=== PATIENT | male | born 1950 | race Caucasian/White ===

== ENCOUNTER → 2017-12-19 09:00 | Outpatient (CLI) | payer OTHER, MEDICARE, SELFPAY | PROVIDERS: PCP Family Medicine; Visit Provider Family Medicine | DX: E04.9 Nontoxic goiter, unspecified (principal); E04.1 Nontoxic single thyroid nodule; Z53.8 Procedure and treatment not carried out for other reasons ==

== ENCOUNTER → 2019-07-23 14:58 | Outpatient (CLI) | payer OTHER, SELFPAY ==
--- NOTE | 2019-07-23 15:06 | DI.RAD.S_ITS ---
PROCEDURE: XR HAND RT MIN 3V INDICATIONS: Osteoarthritis TECHNIQUE: 3 views of the hand(s) acquired. COMPARISON: None. FINDINGS: Bones: Osteophytic changes are noted along radial aspect of right hand and wrist as well as in the first interphalangeal joint, second through fifth DIP joints with features suggestive of erosive osteoarthritis in second and third DIP joints. No fractures or dislocations. Carpal bones are normally aligned. No suspicious bony lesions. Soft tissues: No suspicious soft tissue calcifications. 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 Dictated by: Cali Robles M.D. on 07/23/2019 at 16:07 Approved by: Cali Robles M.D. on 07/23/2019 at 16:08
--- NOTE | 2019-07-23 15:06 | DI.RAD.S_ITS ---
PROCEDURE: XR HAND LT MIN 3V INDICATIONS: Osteoarthritis TECHNIQUE: Pre-views of the hand(s) acquired. COMPARISON: None. FINDINGS: Bones: No fractures or dislocations. Osteophytic changes involving second and third DIP joints are seen with features as discussed above erosive osteoarthritis. Moderate first MCP joint and first interphalangeal joint osteoarthritic changes also seen. Carpal bones are normally aligned. No suspicious bony lesions. Soft tissues: No suspicious soft tissue calcifications. IMPRESSION: Finding is suggestive of erosive osteoarthritis involving second and third DIP joints. Mild to moderate osteoarthritis in the first interphalangeal joint and first MCP joint. Dictated by: Cali Robles M.D. on 07/23/2019 at 16:00 Approved by: Cali Robles M.D. on 07/23/2019 at 16:07
[2019-07-23 16:36] LABS: Hemoglobin A1C% w Est Avg Glu 5.6 % (4.0-6.0)
[2019-07-23 16:38] LABS: Add Manual Diff / Slide Review NO; Basophils Absolute Auto 0 /uL (0-100); Basophils Percent Auto 0.5 % (0-2); Eosinophils Absolute Auto 400 /uL (0-450); Eosinophils Percent Auto 4.8 % (2-4); Hematocrit 48.9 % (41-53); Hemoglobin 16.8 g/dL (13.5-17.5); Lymphocytes Absolute Auto 1600 /uL (1100-4500); Lymphocytes Percent Auto 21.3 % (25-40); Mean Corpuscular HGB Conc 34.4 % (30-36); Mean Corpuscular Hemoglobin 31.3 PG (26-34); Mean Corpuscular Volume 90.8 fL (80-100); Monocytes Absolute Auto 800 /uL (0-900); Monocytes Percent Auto 10.4 % (3-14); Neutrophils Absolute Auto 4600 /uL (1500-7000); Platelet Count 348 X10^3/uL (150-400); Red Blood Cell Count 5.38 X10^6/uL (4.5-5.9); Red Cell Distribution Width 14.2 % (11.6-14.8); White Blood Cell Count 7.3 X10^3/uL (4.5-11.0)
[2019-07-23 16:41] LABS: Alanine Aminotransferase 18 IU/L (<50); Albumin 4.8 g/dL (3.5-5.0); Albumin Globulin Ratio 1.4 (1.0-2.8); Alkaline Phosphatase 76 U/L (38-126); Aspartate Aminotransferase 30 IU/L (17-59); Bilirubin Total 0.5 mg/dL (0.2-1.3); Blood Urea Nitrogen 20 mg/dL (9-20); Calcium 9.8 mg/dL (8.4-10.2); Carbon Dioxide 31 mmol/L (22-32); Chloride 101 mmol/L (98-107); Cholesterol 299 mg/dL (140-199); Estimated Glomerular Filt Rate > 60.0 mL/min (>60); Globulin 3.4 g/dL (1.7-4.1); Glucose 101 mg/dL (80-110); HDL Cholesterol 42 mg/dL (40-60); HEMOLYSIS < 15 (0-50); LDL Cholesterol Calculated 187 mg/dL (<100); Potassium 3.9 mmol/L (3.4-5.1); Sodium 140 mmol/L (137-145); Total Protein 8.2 g/dL (6.3-8.2); Triglycerides 350 mg/dL (35-150)
[2019-07-23 17:10] LABS: Prostate Specific Antigen Scrn 1.21 ng/mL (0.1-4.0)
[2019-07-23 17:28] LABS: Vitamin B12 729 pg/mL (239-931)
[2019-07-23 18:46] LABS: Free T4, Direct Thyroxine 0.48 ng/dL (0.78-2.19)
== END ==
PROVIDERS: PCP Family Medicine; Visit Provider Family Medicine
DX: M19.042 Primary osteoarthritis, left hand (principal); M19.041 Primary osteoarthritis, right hand; E03.9 Hypothyroidism, unspecified; E53.8 Deficiency of other specified B group vitamins; Z76.89 Persons encountering health services in other specified circumstances
CPT/HCPCS: 36415; 73130; 80053; 80061; 82607; 83036; 84439; 84443; 85025; G0103

== ENCOUNTER → 2019-09-22 10:09 | Outpatient (CLI) | payer OTHER, SELFPAY ==
[2019-09-22 11:51] LABS: Erythrocyte Sedimentation Rate 3 MM/HR (0-15)
[2019-09-22 11:57] LABS: Rheumatoid Factor < 8.6 IU/mL (<12.0)
[2019-09-22 12:07] LABS: Free T4, Direct Thyroxine 1.33 ng/dL (0.78-2.19)
[2019-09-22 12:21] LABS: Thyroid Stimulating Hormone 4.23 uIU/mL (0.47-4.68)
[2019-09-25 13:30] LABS: ANA Screen, IFA Negative (.)
== END ==
PROVIDERS: PCP Family Medicine; Referring Provider Family Medicine; Visit Provider Family Medicine
DX: E03.9 Hypothyroidism, unspecified (principal); M25.50 Pain in unspecified joint; M79.673 Pain in unspecified foot
CPT/HCPCS: 36415; 84439; 84443; 85651; 86038; 86430

== ENCOUNTER → 2021-03-13 08:25 | Outpatient (CLI) | payer MEDICARE, OTHER, SELFPAY ==
[2021-03-13 09:46] LABS: Add Manual Diff / Slide Review NO; Basophils Absolute Auto 0 /uL (0-100); Basophils Percent Auto 0.6 % (0-2); Eosinophils Absolute Auto 200 /uL (0-450); Eosinophils Percent Auto 2.6 % (2-4); Hematocrit 49.2 % (41-53); Hemoglobin 16.8 g/dL (13.5-17.5); Lymphocytes Absolute Auto 1900 /uL (1100-4500); Lymphocytes Percent Auto 27.7 % (25-40); Mean Corpuscular HGB Conc 34.1 % (30-36); Monocytes Absolute Auto 600 /uL (0-900); Monocytes Percent Auto 8.8 % (3-14); Neutrophils Absolute Auto 4200 /uL (1500-7000); Neutrophils Percent Auto 60.3 % (50-75); Platelet Count 294 X10^3/uL (150-400); Red Blood Cell Count 5.41 X10^6/uL (4.5-5.9); Red Cell Distribution Width 13.6 % (11.6-14.8)
[2021-03-13 10:06] LABS: Erythrocyte Sedimentation Rate 2 MM/HR (0-15)
[2021-03-13 10:09] LABS: Alanine Aminotransferase 19 IU/L (<50); Albumin 4.4 g/dL (3.5-5.0); Albumin Globulin Ratio 1.4 (1.0-2.8); Alkaline Phosphatase 73 U/L (38-126); Aspartate Aminotransferase 35 IU/L (17-59); BUN Creatinine Ratio 23.9 (6-22); Bilirubin Total 0.7 mg/dL (0.2-1.3); Blood Urea Nitrogen 16 mg/dL (9-20); C-Reactive Protein Quant < 0.5 mg/dL (<1.0); Calcium 8.9 mg/dL (8.4-10.2); Carbon Dioxide 28 mmol/L (22-32); Chloride 106 mmol/L (98-107); Cholesterol 289 mg/dL (140-199); Estimated Glomerular Filt Rate > 60.0 mL/min (>60); Globulin 3.2 g/dL (1.7-4.1); Glucose 103 mg/dL (80-110); HDL Cholesterol 50 mg/dL (40-60); HEMOLYSIS 39 (0-50); LDL Cholesterol Calculated 182 mg/dL (<100); Potassium 4.5 mmol/L (3.4-5.1); Sodium 140 mmol/L (137-145); Total Protein 7.6 g/dL (6.3-8.2); Triglycerides 283 mg/dL (35-150)
[2021-03-13 10:20] LABS: Free T4, Direct Thyroxine 0.87 ng/dL (0.78-2.19)
[2021-03-13 10:28] LABS: Prostate Specific Antigen Scrn 0.987 ng/mL (0.1-4.0)
== END ==
PROVIDERS: PCP Family Medicine; Referring Provider Internal Medicine; Visit Provider Internal Medicine
DX: I10 Essential (primary) hypertension (principal); E03.9 Hypothyroidism, unspecified; Z12.5 Encounter for screening for malignant neoplasm of prostate; E78.5 Hyperlipidemia, unspecified
CPT/HCPCS: 36415; 80053; 80061; 84439; 84443; 85025; 85651; 86140; G0103

== ENCOUNTER → 2021-03-23 11:26 | Outpatient (CLI) | payer MEDICARE, OTHER, SELFPAY ==
--- NOTE | 2021-03-23 | DI.CT.S_ITS ---
PROCEDURE: CT ABDOMEN PELVIS W CON INDICATIONS: Other intra-abdominal and pelvic swelling TECHNIQUE: After the administration of intravenous contrast, axial sections acquired from the lung bases to the pubic symphysis. Coronal and sagittal reformats were performed. For radiation dose reduction, the following was used: automated exposure control, adjustment of mA and/or kV according to patient size. COMPARISON: None. FINDINGS: Image quality: Excellent. Lung bases: Unremarkable. Heart: No significant findings. ABDOMEN: Liver: Hepatic steatosis is seen, no discrete hepatic lesion. Liver is normal in size. Gallbladder: Within normal limits. Biliary ducts: Unremarkable. Pancreas: Unremarkable. Spleen: Unremarkable. Adrenal Glands: Unremarkable. Kidneys and Ureters: No stones or hydronephrosis. No hydroureter. Small left renal cortical cyst measures 5 mm in size is noted in midpole of left kidney. Stomach and Bowel: There is a small to moderate-sized hiatal hernia. No gross gastric wall or small bowel wall thickening. No colonic wall thickening. No mesenteric fat stranding. Extensive descending colon and sigmoid colon diverticulosis is seen, no CT evidence of acute diverticulitis. No abscess collection. Appendix is visualized and is within normal limits. Peritoneum: No abnormal intraperitoneal fluid. No free air. Ventral Wall: No hernias. Abdominal Nodes: No retroperitoneal or mesenteric adenopathy by size criteria. Vessels: Aorta and inferior vena cava are normal in size. PELVIS: Pelvic Organs: Unremarkable. Bladder: Unremarkable. Pelvic Nodes: No enlarged lymph nodes. Miscellaneous: Bilateral inguinal hernia are seen containing fat only. Bones: No suspicious bony lesion. No acute vertebral body compression fracture. IMPRESSION: 1. Small to moderate-sized hiatal hernia. No bowel obstruction or abnormal bowel wall thickening. No free fluid or free air. Normal appendix. Colonic diverticulosis without CT evidence of acute diverticulitis. 2. Hepatic steatosis, no discrete hepatic lesion. 3. No renal stone or hydronephrosis. 4. Small bilateral inguinal hernia containing fat only. Dictated by: Cali Robles M.D. on 03/23/2021 at 13:14 Approved by: Cali Robles M.D. on 03/23/2021 at 13:36
== END ==
PROVIDERS: PCP Family Medicine; Referring Provider Specialist; Visit Provider Specialist
DX: R19.09 Other intra-abdominal and pelvic swelling, mass and lump (principal); K44.9 Diaphragmatic hernia without obstruction or gangrene; K57.30 Diverticulosis of large intestine without perforation or abscess without bleeding; K76.0 Fatty (change of) liver, not elsewhere classified; K40.20 Bilateral inguinal hernia, without obstruction or gangrene, not specified as recurrent
CPT/HCPCS: 74177; 99213

== ENCOUNTER → 2021-04-18 10:01 | Outpatient (CLI) | payer MEDICARE, OTHER, SELFPAY ==
[2021-04-18 11:41] LABS: COVID19 -Nasal RAPID Negative (Negative)
== END ==
PROVIDERS: PCP Family Medicine; Visit Provider Specialist
DX: Z20.822 Contact with and (suspected) exposure to COVID-19 (principal); Z01.812 Encounter for preprocedural laboratory examination
CPT/HCPCS: 87635; C9803

== ENCOUNTER 2021-04-19 11:39 | Day surgery (SDC) | payer MEDICARE, OTHER, SELFPAY ==
[2021-04-16 15:24] VITALS: BMI 30.9
[2021-04-19] VITALS (7 sets, daily range): BP systolic 119–132; BP diastolic 72–87; PULSE 74–101; RESP 13–18; TEMP 36.2–37.1; O2SAT 94–97; BMI 30.9
[2021-04-19] MEDS: GABAPENTIN 300 MG CAPSULE PO (12:02)
[2021-04-19] MEDS: ACETAMINOPHEN 325 MG TABLET 975 MG PO (12:02)
[2021-04-19] MEDS: LACTATED RINGERS 1,000 ML 42 ML IV ×2 (12:03→14:37)
--- NOTE | 2021-04-19 13:06 | PM.PREOP ---
Pre-operative Note COVID-19 COVID-19 status: Negative Result date/Date tested (Pos, Neg/Pending): 04/18/21 Interval Note History & Physical reviewed/Exam performed by Physician: Yes Changes to H&P: No
--- NOTE | 2021-04-19 13:26 | SUR.OPER ---
Supine on padded OR bed, head on pillow, arms secured on padded arm boards at <90 degrees abduction, legs uncrossed, safety belt at thigh, tape over blanket over lower legs.
[2021-04-19] MEDS: BUPIVACAINE 0.5% (PF) VIAL 30 ML INJ (13:33)
[2021-04-19] MEDS: CEFAZOLIN 1 GM VIAL 2 GM IV (13:33)
--- NOTE | 2021-04-19 15:10 | PM.OP.1 ---
Operative Date/Time/Diagnoses Date of procedure: 04/19/21 Time of procedure: 15:10 Pre-op diagnosis: Bilateral reducible inguinal hernias Post-op diagnosis: same (Both sides with direct hernias.) Procedure & Clinicians Procedure: Bilateral repair of hernias. Left side repaired in Zenobia fashion the right side was repaired with a plug and patch technique Same procedure as scheduled: Yes Indications: Symptomatic hernias Surgeon: Lit Boogie Click Yes if Unassisted: Yes Anesthesia Type: General Operative Notes Findings: As above Closure Type: primary Specimen(s): none sent Prosthetic devices, grafts, tissues, transplants, or devices: 2 x 4 in Marlex mesh on the left. Large plug and patch on the right. Estimated Blood Loss (mL): 10 Blood products transfused: none Procedure in detail: The patient was placed supine on the operating room table and underwent general LMA anesthesia. He was prepped and draped in the usual fashion. A transverse incision was made overlying the left internal ring and carried down to the level of the external oblique. The external oblique was opened parallel with its fibers through the external ring. The cord structures were elevated. The cord was quite diminutive in size. The cremaster was opened proximally and search made for an indirect sac. None was found. The floor was examined and was found to be weekend with bulging in the mid section. A 2 by 4 inch piece of Marlex mesh placed across the floor and tacked at the pubic tubercle, the posterior lamella of the anterior rectus sheath, the ilioinguinal ligament, and superior lateral to the cord. Anopening was made to allow the cord structures to egress through the mesh. It was made as necessary to prevent tight constriction of the cord. Sutures of 0 Ethibond were used to secure the mesh. The external oblique was closed with a running 3 0 Vicryl. The subcu was closed with interrupted 3 0 Vicryl. The skin was closed with a running 4 0 Vicryl subcuticular stitch . Attention was turned to the right side. A transverse mirror incision was made overlying the right internal ring and carried down to the level of the external oblique. The external oblique was opened parallel with its fibers through the external ring. The cord structures were elevated. The cord on this side was also small but there was a small lipoma of the cord. I opened the cremaster and dissected this fat from the surrounding structures ligated it and removed it. I made a search made for an indirect sac But none was found. The floor was examined and was found to be markedly attenuated. The floor was opened and the preperitoneal fat protruding up was dissected off the overlying tissues and reduced. A large plug was placed in the preperitoneal space and tacked into place with interrupted Ethibond suture. The floor was closed over this with interrupted Ethibond sutures suturing from the edge of the inguinal ligament in the ileopubic tract to the transversus medially. A patch was placed across the floor and tacked at the pubic tubercle, the posterior lamella of the anterior rectus sheath, the ilioinguinal ligament, and superior lateral to the cord. The opening was modified as necessary to prevent tight constriction of the cord. Sutures of 0 Ethibond were used to secure the mesh. The external oblique was closed with a running 3 0 Vicryl. The subcu was closed with interrupted 4-0 Vicryl. The skin was closed with a running 4 0 Vicryl subcuticular stitch. Local anesthetic was infiltrated on both wounds. Mastisol and Steri-Strips Dressing was applied, the patient was awakened, and the patient was taken to the recovery area in good condition. Complications: none Post-operative Condition: stable Disposition: PACU
--- NOTE | 2021-04-19 15:21 | SUR.PHASEI ---
Pt A&O, denies pain or nausea, sitting up now and drinking gingerale without problems. VSS
[2021-04-19] MEDS: OXYCODONE IR 5 MG TABLET PO (15:32)
--- NOTE | 2021-04-19 15:47 | SUR.PHASEII ---
Pt resting comfortably with no complaints wanting pain med oxycodone given po at 1530 to take effect before trying to get up and get dressed. Pt states he can feel the incisions now but pain at 3/10.
== END 2021-04-19 16:20 | disposition home or self-care (01) ==
PROVIDERS: PCP Family Medicine; Referring Provider Specialist; Visit Provider Specialist
PROC: (CPT 49505; principal; 2021-04-19 12:45)
DX: K40.20 Bilateral inguinal hernia, without obstruction or gangrene, not specified as recurrent (principal); I10 Essential (primary) hypertension; E78.5 Hyperlipidemia, unspecified; E03.9 Hypothyroidism, unspecified; K21.9 Gastro-esophageal reflux disease without esophagitis; E66.9 Obesity, unspecified; Z68.30 Body mass index [BMI] 30.0-30.9, adult; Z87.891 Personal history of nicotine dependence
CPT/HCPCS: 49505; 82962; C1781; J0690; J1100; J1885; J2405; J2704; J3010

== ENCOUNTER → 2021-07-16 08:46 | Outpatient (CLI) | payer MEDICARE, OTHER, SELFPAY ==
[2021-07-16 10:29] LABS: Alanine Aminotransferase 24 IU/L (<50); Albumin 4.3 g/dL (3.5-5.0); Albumin Globulin Ratio 1.3 (1.0-2.8); Alkaline Phosphatase 85 U/L (38-126); Aspartate Aminotransferase 34 IU/L (17-59); BUN Creatinine Ratio 23.7 (6-22); Bilirubin Total 0.4 mg/dL (0.2-1.3); Blood Urea Nitrogen 18 mg/dL (9-20); Carbon Dioxide 26 mmol/L (22-32); Chloride 108 mmol/L (98-107); Cholesterol 202 mg/dL (140-199); Estimated Glomerular Filt Rate > 60.0 mL/min (>60); Globulin 3.4 g/dL (1.7-4.1); Glucose 102 mg/dL (80-110); HDL Cholesterol 45 mg/dL (40-60); HEMOLYSIS < 15 (0-50); LDL Cholesterol Calculated 125 mg/dL (<100); Potassium 3.8 mmol/L (3.4-5.1); Sodium 140 mmol/L (137-145); Total Protein 7.7 g/dL (6.3-8.2); Triglycerides 162 mg/dL (35-150)
[2021-07-16 10:45] LABS: Free T4, Direct Thyroxine 0.89 ng/dL (0.78-2.19)
[2021-07-16 10:56] LABS: Prostate Specific Antigen Scrn 0.922 ng/mL (0.1-4.0)
[2021-07-16 10:58] LABS: Thyroid Stimulating Hormone 3.72 uIU/mL (0.47-4.68)
== END ==
PROVIDERS: PCP Family Medicine; Referring Provider Family Medicine; Visit Provider Family Medicine
DX: E03.9 Hypothyroidism, unspecified (principal); Z12.5 Encounter for screening for malignant neoplasm of prostate; E78.5 Hyperlipidemia, unspecified; N40.0 Benign prostatic hyperplasia without lower urinary tract symptoms
CPT/HCPCS: 36415; 80053; 80061; 84439; 84443; G0103

== ENCOUNTER → 2022-10-21 07:58 | Outpatient (CLI) | payer MEDICARE, OTHER, SELFPAY ==
[2022-10-21 09:28] LABS: Alanine Aminotransferase 32 IU/L (<50); Albumin 4.3 g/dL (3.5-5.0); Albumin Globulin Ratio 1.4 (1.0-2.8); Alkaline Phosphatase 85 U/L (38-126); Aspartate Aminotransferase 37 IU/L (17-59); Bilirubin Total 0.7 mg/dL (0.2-1.3); Blood Urea Nitrogen 19 mg/dL (9-20); Calcium 9.2 mg/dL (8.4-10.2); Carbon Dioxide 29 mmol/L (22-32); Chloride 102 mmol/L (98-107); Estimated Glomerular Filt Rate > 60 mL/min (>60); Globulin 3.1 g/dL (1.7-4.1); Glucose 101 mg/dL (80-110); HEMOLYSIS < 15 (0-50); Potassium 4.3 mmol/L (3.4-5.1); Sodium 138 mmol/L (137-145); Total Protein 7.4 g/dL (6.3-8.2)
[2022-10-21 09:43] LABS: Free T4, Direct Thyroxine 0.81 ng/dL (0.78-2.19)
[2022-10-21 09:56] LABS: Prostate Specific Antigen 1.33 ng/mL (0.10-4.00)
[2022-10-21 09:57] LABS: Thyroid Stimulating Hormone 10.5 uIU/mL (0.47-4.68)
== END ==
PROVIDERS: PCP Family Medicine; Referring Provider Family Medicine; Visit Provider Family Medicine
DX: N40.1 Benign prostatic hyperplasia with lower urinary tract symptoms (principal); E89.0 Postprocedural hypothyroidism; I10 Essential (primary) hypertension; N13.8 Other obstructive and reflux uropathy
CPT/HCPCS: 36415; 80053; 84153; 84439; 84443

== ENCOUNTER → 2024-07-15 09:12 | Outpatient (CLI) | payer MEDICARE, OTHER, SELFPAY ==
[2024-07-15 09:56] LABS: Add Manual Diff / Slide Review NO; Basophils Absolute Auto 100 /uL (0-100); Basophils Percent Auto 0.7 % (0-2); Eosinophils Absolute Auto 200 /uL (0-450); Hematocrit 47.9 % (41-53); Hemoglobin 16.6 g/dL (13.5-17.5); Lymphocytes Absolute Auto 2000 /uL (1100-4500); Lymphocytes Percent Auto 26.7 % (25-40); Mean Corpuscular HGB Conc 34.7 % (30-36); Mean Corpuscular Hemoglobin 31.9 PG (26-34); Mean Corpuscular Volume 91.8 fL (80-100); Monocytes Absolute Auto 700 /uL (0-900); Monocytes Percent Auto 8.7 % (3-14); Neutrophils Absolute Auto 4600 /uL (1500-7000); Neutrophils Percent Auto 60.9 % (50-75); Platelet Count 288 X10^3/uL (150-400); Red Blood Cell Count 5.21 X10^6/uL (4.5-5.9); Red Cell Distribution Width 13.5 % (11.6-14.8); White Blood Cell Count 7.6 X10^3/uL (4.5-11.0)
[2024-07-15 10:15] LABS: Alanine Aminotransferase 32 IU/L (<50); Albumin 4.4 g/dL (3.5-5.0); Albumin Globulin Ratio 1.6 (1.0-2.8); Alkaline Phosphatase 93 U/L (38-126); Aspartate Aminotransferase 37 IU/L (17-59); BUN Creatinine Ratio 21.7 (6-22); Bilirubin Total 0.6 mg/dL (0.2-1.3); Blood Urea Nitrogen 18 mg/dL (9-20); Calcium 9.4 mg/dL (8.4-10.2); Carbon Dioxide 27 mmol/L (22-32); Chloride 105 mmol/L (98-107); Cholesterol 213 mg/dL (140-199); Estimated Glomerular Filt Rate > 60 mL/min (>60); Globulin 2.7 g/dL (1.7-4.1); Glucose 103 mg/dL (80-110); HDL Cholesterol 56 mg/dL (40-60); HEMOLYSIS < 15 (0-50); LDL Cholesterol Calculated 117 mg/dL (<100); Potassium 4.7 mmol/L (3.4-5.1); Sodium 138 mmol/L (137-145); Total Protein 7.1 g/dL (6.3-8.2); Triglycerides 198 mg/dL (35-150)
[2024-07-15 10:31] LABS: Free T4, Direct Thyroxine 0.84 ng/dL (0.78-2.19)
[2024-07-15 10:45] LABS: Thyroid Stimulating Hormone 6.51 uIU/mL (0.47-4.68)
== END ==
PROVIDERS: PCP Family Medicine; Referring Provider Family Medicine; Visit Provider Family Medicine
DX: E78.5 Hyperlipidemia, unspecified (principal); Z00.00 Encounter for general adult medical examination without abnormal findings; Z12.5 Encounter for screening for malignant neoplasm of prostate; N40.0 Benign prostatic hyperplasia without lower urinary tract symptoms; E03.9 Hypothyroidism, unspecified; I10 Essential (primary) hypertension
CPT/HCPCS: 36415; 80053; 80061; 84439; 84443; 85025; G0103

== ENCOUNTER → 2024-07-15 09:48 | Outpatient (CLI) | payer MEDICARE, OTHER, SELFPAY ==
--- NOTE | 2024-07-15 09:49 | DI.US.S_ITS ---
PROCEDURE: US SOFT TISSUE HEAD AND NECK INDICATIONS: eval neck lump TECHNIQUE: Real-time scanning was performed of the neck region of interest, with image documentation. COMPARISON: None. FINDINGS: Within the area of interest at the right posterior neck line, there is a heterogeneous a vascular structure in the subcutaneous tissue measuring 1.2 x 1.3 x 0.8 cm. No distinct tract is seen to the skin surface. IMPRESSION: Heterogeneous lesion measuring up to 1.3 cm in the area of concern, as described above. Findings may represent an epidermal inclusion cyst. Other benign and malignant etiologies are not definitively excluded. Recommend clinical correlation and follow-up. If there is concern for growth, recommend repeat imaging. Dictated by: Randall Yoder M.D. on 07/15/2024 at 15:48 Approved by: Randall Yoder M.D. on 07/15/2024 at 15:50
== END ==
PROVIDERS: PCP Family Medicine; Referring Provider Family Medicine; Visit Provider Family Medicine
DX: Z00.00 Encounter for general adult medical examination without abnormal findings (principal); R22.1 Localized swelling, mass and lump, neck; R59.1 Generalized enlarged lymph nodes; Z12.5 Encounter for screening for malignant neoplasm of prostate; N40.0 Benign prostatic hyperplasia without lower urinary tract symptoms; E78.5 Hyperlipidemia, unspecified; E03.9 Hypothyroidism, unspecified; I10 Essential (primary) hypertension
CPT/HCPCS: 36415; 76536; 80053; 80061; 84439; 84443; 85025; G0103